=== PATIENT | male | born 1985 | race American Indian/Alaskan Native ===

== ENCOUNTER 2017-11-04 13:37 | Emergency (ER) | payer SELFPAY ==
[2017-11-04] MEDS ORDERED: CATAPRES PO ONE (15:25)
--- NOTE | 2017-11-04 15:36 | Emergency Department Report ---
ED General Adult HPI - General Chief complaint: High BP Stated complaint: HYPERTENSIVE Time Seen by Provider: 11/04/17 15:18 Source: patient Mode of arrival: Ambulatory Limitations: No Limitations - History of Present Illness Initial comments: Patient is a 32-year-old -[place] male who is presenting with elevated blood pressure. Patient was at a job physical and his blood pressure was elevated and he was told he had to come to the emergency department. Patient until his blood pressure and elevated in the past but is not several minutes. Patient denies chest pain shortness of breath fevers chills cough congestion, pain decreased urination. Has no focal neurological symptoms at this time either. - Related Data Previous Rx's Medication Instructions Recorded Last Taken Type Lisinopril/Hydrochlorothiazide 1 each PO DAILY #30 tablet 11/04/17 Unknown Rx [Zestoretic 10-12.5 mg Tablet] Allergies Allergy/AdvReac Type Severity Reaction Status Date / Time Penicillins Allergy Rash Verified 11/04/17 13:51 ED Review of Systems ROS: Stated complaint: HYPERTENSIVE Other details as noted in HPI Comment: All other systems reviewed and negative ED Past Medical Hx - Past Medical History Previous Medical History?: No - Surgical History Past Surgical History?: No - Social History Smoking Status: Never Smoker Substance Use Type: Alcohol - Medications Home Medications: Home Medications Medication Instructions Recorded Confirmed Last Taken Type Lisinopril/Hydrochlorothiazide 1 each PO DAILY #30 tablet 11/04/17 Unknown Rx [Zestoretic 10-12.5 mg Tablet] ED Physical Exam - General Limitations: No Limitations General appearance: alert, in no apparent distress - Head Head exam: Present: atraumatic, normocephalic - Eye Eye exam: Present: normal appearance - ENT ENT exam: Present: mucous membranes moist - Neck Neck exam: Present: normal inspection - Respiratory Respiratory exam: Present: normal lung sounds bilaterally. Absent: respiratory distress, wheezes, rales, rhonchi - Cardiovascular Cardiovascular Exam: Present: regular rate, normal rhythm. Absent: systolic murmur, diastolic murmur, rubs, gallop - GI/Abdominal GI/Abdominal exam: Present: soft, normal bowel sounds. Absent: distended, tenderness, guarding, rebound - Rectal Rectal exam: Present: deferred - Extremities Exam Extremities exam: Present: normal inspection - Back Exam Back exam: Present: normal inspection - Neurological Exam Neurological exam: Present: alert, oriented X3 - Psychiatric Psychiatric exam: Present: normal affect, normal mood - Skin Skin exam: Present: warm, dry, intact, normal color. Absent: rash ED Course Vital Signs 11/04/17 13:52 Temperature 97.4 F L Pulse Rate 63 Respiratory 16 Rate Blood Pressure 206/136 O2 Sat by Pulse 99 Oximetry ED Medical Decision Making - Medical Decision Making Patient will be started on blood pressure medicines given Catapres here in the emergency department and discharged home. Critical care attestation.: If time is entered above; I have spent that time in minutes in the direct care of this critically ill patient, excluding procedure time. ED Disposition Clinical Impression: Hypertensive urgency Disposition: DC-01 TO HOME OR SELFCARE Is pt being admited?: No Does the pt Need Aspirin: No Condition: Stable Instructions: Hypertension (ED) Prescriptions: Lisinopril/Hydrochlorothiazide [Zestoretic 10-12.5 mg Tablet] 1 each PO DAILY # 30 tablet Referrals: PRIMARY CARE, [Primary Care Provider] - 3-5 Days
[2017-11-04 15:37] VITALS: BP 215/128
== END 2017-11-04 15:40 | disposition home or self-care (01) ==
LOC: ED 13:37
DX: I16.0 Hypertensive urgency (principal); Z88.0 Allergy status to penicillin
CPT/HCPCS: 99282